=== PATIENT | female | born 1960 | race Caucasian/White ===

== ENCOUNTER → 2016-11-23 | Outpatient (CLI) | payer BC | LOC: MW.CHFP 14:34 | PROVIDERS: ATTEND Nurse Practitioner Family | DX: R10.31 Right lower quadrant pain (principal) | CPT/HCPCS: 36415; 85025 ==

== ENCOUNTER → 2016-11-27 | Outpatient (CLI) | payer BC ==
--- NOTE | 2016-11-28 08:49 | CT ---
EXAMINATION: CT IAC HISTORY: Right tear pain COMPARISON: None TECHNIQUE: Axial CT images obtained through the IACs without contrast. Coronal and sagittal reconstr uctions obtained. FINDINGS: The middle ears appear normal bilaterally. The ossicles are intact. The cochlea and semici rcular canals are normal without evidence of the assistance. There is minimal opacification of the m astoid air cells bilaterally. No bony erosion or air-fluid levels. The IACs appear symmetric. Bone m ineralization is normal. The visualized paranasal sinuses are clear. Temporomandibular joints appear normal. IMPRESSION: Normal IACs bilaterally.
== END ==
LOC: MW.DI 11:01
PROVIDERS: ATTEND Nurse Practitioner Family
DX: H92.01 Otalgia, right ear (principal)
CPT/HCPCS: 70480; 70480-26

== ENCOUNTER 2017-09-20 09:11 | Day surgery (SDC) | payer BC ==
[~2017-09-20 09:11] MED LIST: Lactated Ringers 1,000 ML IV SCH; Sodium Chloride 0.9% 10 ML Syringe FLUSH PRN; Sodium Chloride 0.9% 2.5 ML Syringe FLUSH PRN
--- NOTE | 2017-09-20 09:55 | PCM.PREANE ---
Preanesthetic Assessment - Anesthesia/Transfusion/Family Hx Anesthesia History: Prior Anesthesia Without Reaction Family History of Anesthesia Reaction: No Transfusion History: No Prior Transfusion(s) Intubation History: Unknown - Review of Systems General: No Symptoms Pulmonary: No Symptoms Cardiovascular: No Symptoms Gastrointestinal: Other (gerd) Neurological: No Symptoms Other: Reports: None - Physical Assessment O2 Sat by Pulse Oximetry: 96 Respiratory Rate: 16 Vital Signs: Last Vital Signs Temp 36.3 C 09/20/17 09:18 Pulse 86 09/20/17 09:18 Resp 16 09/20/17 09:18 BP 116/76 09/20/17 09:18 Pulse Ox 96 09/20/17 09:18 Height: 1.63 m Weight: 68.946 kg Mental Status: Alert & Oriented x3 Airway Class: Mallampati = 2 Dentition: Reports: Normal Dentition Thyro-Mental Finger Breadths: 3 Mouth Opening Finger Breadths: 3 ROM/Head Extension: Full Lungs: Clear to Auscultation, Normal Respiratory Effort Cardiovascular: Regular Rate, Regular Rhythm - Allergies Allergies/Adverse Reactions: Allergies Allergy/AdvReac Type Severity Reaction Status Date / Time No Known Allergies Allergy Verified 03/28/15 17:45 - Blood Blood Available: No - Anesthesia Plan Pre-Op Medication Ordered: None - Acknowledgements Anesthesia Type Planned: MAC Pt an Appropriate Candidate for the Planned Anesthesia: Yes Alternatives and Risks of Anesthesia Discussed w Pt/Guardian: Yes Pt/Guardian Understands and Agrees with Anesthesia Plan: Yes PreAnesthesia Questionnaire - Past Health History Medical/Surgical History: Denies Medical/Surgical History Gastrointestinal History: Reports: Diverticulosis, Gastritis, GERD, Hiatal Hernia Musculoskeletal History: Reports: Arthritis Psychiatric History: Reports: Anxiety, Depression - Past Surgical History Head Surgeries/Procedures: Reports: None Female Surgical History: Reports: Hysterectomy, Salpingo-Oophorectomy - SUBSTANCE USE Smoking Status *Q: Former Smoker Second Hand Smoke Exposure: No Days Per Week of Alcohol Use: 0 Recreational Drug Use History: No - HOME MEDS Home Medications: Home Meds Estradiol [Vivelle-Dot] 1 patch TRDERM ASDIRECTED 01/09/15 [History] busPIRone [Buspar] 15 tab PO BID 01/09/15 [History] medroxyPROGESTERone Acetate [Medroxyprogesterone Acetate] 2.5 mg PO DAILY [History] Pantoprazole Sodium 40 mg PO DAILY 09/19/17 [History] - CURRENT (IN HOUSE) MEDS Current Meds: Current Medications Lactated Ringer's (Ringers, Lactated) 1,000 mls @ 125 mls/hr IV ASDIRECTED GO Last Admin: 09/20/17 09:22 Dose: 125 mls/hr Sodium Chloride (Saline Flush) 10 ml FLUSH ASDIRECTED PRN PRN Reason: Keep Vein Open Sodium Chloride (Saline Flush) 2.5 ml FLUSH ASDIRECTED PRN PRN Reason: Keep Vein Open
[2017-09-20] MEDS ORDERED: Midazolam 1 MG/ML 2 ML SDV ONE (13:02)
[2017-09-20] MEDS ORDERED: fentaNYL 100 MCG/2 ML SDV ONE (13:02)
[2017-09-20] MEDS ORDERED: Propofol 200 MG/20 ML SDV ONE (13:02)
[2017-09-20] MEDS ORDERED: Lidocaine 2% 5 ML SDV ONE (13:02)
--- NOTE | 2017-09-20 13:53 | PCM.OPNOTE ---
- General Post-Op/Procedure Note Date of Surgery/Procedure: 09/20/17 Operative Procedure(s): Diagnostic EGD and colonoscopy Findings: Hiatal hernia, diverticulosis Pre Op Diagnosis: Dysphagia, screening colonoscopy Post-Op Diagnosis: Hiatal hernia, diverticulosis Anesthesia Technique: AIMEE Primary Surgeon: Jaimie Soares Condition: Good
--- NOTE | 2017-09-20 14:08 | PCM48HPAN ---
Post Anesthesia Note - EVALUATION WITHIN 48HRS OF ANESTHETIC Vital Signs in Normal Range: Yes Patient Participated in Evaluation: Yes Respiratory Function Stable: Yes Airway Patent: Yes Cardiovascular Function Stable: Yes Hydration Status Stable: Yes Pain Control Satisfactory: Yes Nausea and Vomiting Control Satisfactory: Yes Mental Status Recovered: Yes
--- NOTE | 2017-09-20 14:08 | PCM.POSTAN ---
POST ANESTHESIA ASSESSMENT - MENTAL STATUS Mental Status: Alert, Oriented - RESPIRATORY Respiratory Status: Respiratory Rate WNL, Airway Patent, O2 Saturation Stable - CARDIOVASCULAR CV Status: Pulse Rate WNL, Blood Pressure Stable - GASTROINTESTINAL GI Status: No Symptoms - POST OP HYDRATION Hydration Status: Adequate & Stable
[2017-09-20 14:21] VITALS: BP 110/74
--- NOTE | 2017-09-21 09:48 | OR ---
SURGEON: ROQUE SILVA MD DATE OF PROCEDURE: 09/20/2017 PREOPERATIVE DIAGNOSIS: Right upper extremity pain and swelling. POSTOPERATIVE DIAGNOSIS: Right upper extremity pain and swelling. PROCEDURE PERFORMED: 1. Removal of right subclavian Port-A-Cath. 2. Placement of left internal jugular Port-A-Cath. ANESTHESIA: General LMA. FLUIDS: See anesthesia record. ESTIMATED BLOOD LOSS: 30 mL. FINDINGS: Intact right subclavian Port-A-Cath. Placement of left internal jugular Port-A- Cath. COMPLICATIONS: None. INDICATIONS: The patient is a 57-year-old female with poor vascular access and a history of lymphoma, who 4 to 5 years ago underwent placement of a right subclavian Port-A- Cath. This has been functioning well for her. Starting last month, she developed pain around the Port-A-Cath site, which then extended up into her neck. The patient started developing right upper extremity swelling, pain, and numbness. All imaging and laboratory testing have been normal. The patient continues to have tenderness around the Port-A-Cath site. The decision was made to remove the right subclavian Port-A-Cath to see if this gives the patient some relief. At this point in time, there are no indications that this port is infected. Because of this, we will place a new Port-A-Cath at the same time. We discussed the procedure, expected perioperative course, and risks including bleeding, infection, or damage to surrounding structures, including hemothorax or pneumothorax. The patient verbalized understanding and wishes to proceed. PROCEDURE IN DETAIL: The patient was brought into the OR and placed on the OR table in supine position. A time-out was completed verifying the patient's name, age, date of , allergies, and procedure to be performed. An ultrasound was brought in and I verified the vascular anatomy on the left side in the patient's neck. General LMA anesthesia was induced. The neck and chest were prepped and draped in usual standard fashion. 0.5% Marcaine plain was used to anesthetize her previous incision on the right anterior chest. A #15 blade was used to open up the previous incision. Cautery was used to dissect down to the level of the old Port-A-Cath. The port was well scarred in and did not appear to have any collections of purulence around it. There was no evidence of any edema or swelling around the port itself. The scar capsule was opened and I was able to take down any adhesions of the port to surrounding structures. Gentle pressure was used and the Port-A-Cath tubing was then removed from the subclavian vein. Hemostasis was then achieved using cautery. I closed the site with interrupted 3-0 Vicryl in the subcutaneous fat and a running 4-0 Monocryl stitch in a subcuticular space. Steri-Strips and sterile dressings were applied. I then turned my attention to the left neck. Using a sterile ultrasound, I then re- verified the vascular anatomy of the neck. I anesthetized the area overlying the left internal jugular vein with 0.5% Marcaine plain. Using ultrasound guidance, I guided a locating needle into the left internal jugular vein. A brisk return of venous blood was aspirated. A guidewire was then placed down the internal jugular vein and the billing and insurance coordinator needle removed. X-ray was brought in and I verified that the guidewire was in the superior vena cava. I then turned my attention to the left anterior chest. I made a subcutaneous pocket, approximately 2 fingerbreadths below the lateral left clavicle. Once the subcutaneous pocket was formed, I then used a tunneling device to tunnel my catheter tubing from the anterior chest wall pocket up to the guidewire on the left neck. Dilator and sheath were then advanced under fluoroscopic guidance. Over the guidewire to dilate up the vein. The internal dilator was removed and I attempted to place the catheter tubing down the vascular sheath. However, I was unable to do so. The catheter tubing was removed and I placed a dilator back in. There seemed to be resistance at the base of the vascular sheath. I placed the guidewire back into the vessel and removed the vascular sheath and dilator. A new vascular sheath and dilator were then brought in and guided under fluoroscopic guidance over the guidewire again. The guidewire and dilator were removed and I was then able to place a catheter tubing down the vascular sheath into the superior vena cava. The vascular sheath was split and removed. Fluoroscopy was used to then guide the catheter tubing into the superior vena cava in an acceptable position. I was able to get a good return of venous blood from the end of the catheter tubing. The catheter tubing was then trimmed to fit and placed onto the Port-A-Cath device. This was then placed in my subcutaneous anterior chest wall pocket and secured to the chest wall with interrupted 2-0 Prolene sutures. The port was then aspirated and locked with 4 mL of heparinized saline. The anterior chest wall pocket was then closed with interrupted 3-0 Vicryl in the subcutaneous fat and a running 4-0 Monocryl stitch in the subcuticular space. The neck insertion site was then closed with interrupted 4-0 Monocryl suture. Steri-Strips and sterile dressings were applied. The patient tolerated the procedure well and was taken to PACU in stable condition. A postoperative chest x-ray appeared normal. JOAQUIN HARRELL /[id number]
--- NOTE | 2017-09-21 10:24 | OR ---
SURGEON: ROQUE SILVA MD DATE OF PROCEDURE: 09/20/2017 PREOPERATIVE DIAGNOSES: Diverticulitis, dysphagia. POSTOPERATIVE DIAGNOSES: 1. Diverticulosis. 2. Hiatal hernia. 3. Gastroesophageal reflux disease. PROCEDURE PERFORMED: Diagnostic esophagogastroduodenoscopy and colonoscopy. ANESTHESIA: MAC. INSTRUMENT USED: Olympus endoscope, Olympus colonoscope. EXTENT OF EXAM: 1. To the second portion of duodenum. 2. To the cecum. PREPARATION: Good. LIMITATIONS: None. INDICATION FOR EXAMINATION: The patient is a 57-year-old female, who was recently diagnosed with diverticulitis in July of this past year. She was treated successfully with antibiotics and her bowel habits have returned to normal. The patient has never had a colonoscopy. The patient was also complaining of some dysphagia. Preoperative esophagram showed a small hiatal hernia as well as gastric reflux. The decision was made to perform a diagnostic EGD and colonoscopy. The patient and I discussed the procedure as well as expected perioperative course. We discussed the risks, including bleeding, infection, or damage to surrounding structures, including perforation. The patient verbalized understanding and wishes to proceed. PROCEDURE IN DETAIL: The patient was brought into the endoscopy suite and placed in a beach-chair position. A time-out was completed verifying the patient's name, age, date of , allergies, and procedure to be performed. A bite-block was placed in the patient's mouth and monitored anesthesia care induced. Continuous oxygen was provided via nasal cannula throughout the procedure. After adequate sedation was achieved, a well-lubricated endoscope was placed in the patient's mouth and advanced under direct visualization to the level of second portion of the duodenum. This appeared normal and a photograph was taken. The scope was then fully withdrawn while examining the color, texture, anatomy, and integrity of the mucosa of the upper GI tract. The duodenum appeared normal. The scope was brought into the stomach and a photograph was taken of the pylorus as well as the GE junction. The patient was noted to have a very small hiatal hernia. The gastric mucosa did not appear grossly inflamed and there was no evidence of peptic ulcer disease. Biopsies were taken of the gastric antrum, body, and fundus and sent for H. pylori and histologic testing. The scope was then brought into the distal esophagus and a photograph was taken of the GE junction. Hiatal hernia appeared small and there was no evidence of esophagitis. The remainder of the esophageal mucosa appeared normal. The scope was removed from the patient and this portion of procedure terminated. The patient was placed in the left lateral decubitus position. A digital rectal exam was performed. This exam was within normal limits. A well-lubricated colonoscope was inserted in the rectum and advanced under direct visualization to the level of the cecum. The cecum was identified by both visual and anatomic landmarks. A photograph was taken of the cecal cap as well as with the scope retroflexed within the cecum. The scope was then fully withdrawn while examining the color, texture, anatomy, and integrity of the mucosa from the cecum to the anal canal. The patient was noted to have diverticulosis. The scope was brought into the rectum and retroflexed to allow visualization of the anal canal opening. This appeared normal and a photograph was taken. The scope was then straightened out and removed from the patient. The cecum to anus time was 13 minutes. The patient tolerated the procedure well and was taken to PACU in stable condition. ENDOSCOPIC DIAGNOSES: 1. Diverticulosis. 2. Hiatal hernia. 3. Gastroesophageal reflux disease. RECOMMENDATION: Follow up in clinic in 2 weeks. JOAQUIN HARRELL /[id number]
== END 2017-09-20 14:24 | disposition home or self-care (01) ==
LOC: MW.SDS 09:11
PROVIDERS: ATTEND Surgery
DX: K21.9 Gastro-esophageal reflux disease without esophagitis (principal); K29.50 Unspecified chronic gastritis without bleeding; K57.30 Diverticulosis of large intestine without perforation or abscess without bleeding; K44.9 Diaphragmatic hernia without obstruction or gangrene; M79.601 Pain in right arm; F41.8 Other specified anxiety disorders; Z90.710 Acquired absence of both cervix and uterus; Z79.899 Other long term (current) drug therapy; Z90.722 Acquired absence of ovaries, bilateral; Z87.891 Personal history of nicotine dependence
CPT/HCPCS: 36561; 36590; 43239; 45378; J2250; J3010; J7120; 88305; 88312; J2704

== ENCOUNTER 2017-10-25 13:55 | Day surgery (SDC) | payer BC ==
[2017-10-25] MEDS ORDERED: Bupivacaine 25%/EPINEPHrine/PF 30 ML ONE (14:28)
[2017-10-25] MEDS ORDERED: Octyl 2-Cyanoacrylate 1 Tube ONE ×2 (14:29→16:08)
[2017-10-25] MEDS ORDERED: Propofol 200 MG/20 ML SDV ONE (14:32)
[2017-10-25] MEDS ORDERED: Succinylcholine/Normal Saline 200 MG/10 ML Syringe ONE (14:32)
[2017-10-25] MEDS ORDERED: Ondansetron 4 MG/2 ML SDV ONE (14:32)
[2017-10-25] MEDS ORDERED: Dexamethasone 4 MG/ML 5 ML MDV ONE (14:32)
[2017-10-25] MEDS ORDERED: diphenhydrAMINE 50 MG/ML SDV ONE (14:32)
[2017-10-25] MEDS ORDERED: Rocuronium 10 MG/ML 10 ML Syringe ONE (14:32)
[2017-10-25] MEDS ORDERED: fentaNYL 250 MCG/5 ML SDV ONE (14:32)
[2017-10-25] MEDS ORDERED: Midazolam 1 MG/ML 2 ML SDV ONE (14:32)
--- NOTE | 2017-10-25 15:07 | PCM.PREANE ---
Preanesthetic Assessment - Procedure Proposed Procedure: laparoscopic appendectomy - Anesthesia/Transfusion/Family Hx Anesthesia History: Prior Anesthesia Without Reaction Family History of Anesthesia Reaction: No Transfusion History: No Prior Transfusion(s) Intubation History: Unknown - Review of Systems Other: Reports: None - Physical Assessment O2 Sat by Pulse Oximetry: 97 Respiratory Rate: 20 Vital Signs: Last Vital Signs Temp 36.3 C 10/25/17 14:20 Pulse 95 10/25/17 14:20 Resp 20 10/25/17 14:20 BP 128/82 10/25/17 14:20 Pulse Ox 97 10/25/17 14:20 Height: 5 ft 4 in Weight: 69.4 kg ASA Class: 2E Mental Status: Alert & Oriented x3 Airway Class: Mallampati = 2 Dentition: Reports: Normal Dentition Thyro-Mental Finger Breadths: 3 Mouth Opening Finger Breadths: 3 ROM/Head Extension: Full - Allergies Allergies/Adverse Reactions: Allergies Allergy/AdvReac Type Severity Reaction Status Date / Time No Known Allergies Allergy Verified 10/25/17 14:48 - Acknowledgements Anesthesia Type Planned: General Anesthesia Pt an Appropriate Candidate for the Planned Anesthesia: Yes Alternatives and Risks of Anesthesia Discussed w Pt/Guardian: Yes Pt/Guardian Understands and Agrees with Anesthesia Plan: Yes PreAnesthesia Questionnaire - Past Health History Medical/Surgical History: Denies Medical/Surgical History Gastrointestinal History: Reports: Diverticulosis, Gastritis, GERD, Hiatal Hernia Musculoskeletal History: Reports: Arthritis Psychiatric History: Reports: Anxiety, Depression - Past Surgical History Head Surgeries/Procedures: Reports: None GI Surgical History: Reports: Colonoscopy Female Surgical History: Reports: Hysterectomy, Salpingo-Oophorectomy - SUBSTANCE USE Smoking Status *Q: Unknown Ever Smoked Second Hand Smoke Exposure: No Days Per Week of Alcohol Use: 0 Recreational Drug Use History: No - HOME MEDS Home Medications: Home Meds Estradiol [Vivelle-Dot] 1 patch TRDERM ASDIRECTED 01/09/15 [History] busPIRone [Buspar] 15 tab PO BID 01/09/15 [History] medroxyPROGESTERone Acetate [Medroxyprogesterone Acetate] 2.5 mg PO DAILY [History] Pantoprazole Sodium 40 mg PO DAILY 09/19/17 [History] - CURRENT (IN HOUSE) MEDS Current Meds: Current Medications Discontinued Medications Dexamethasone (Dexamethasone) Confirm Administered Dose 20 mg .ROUTE .STK-MED ONE Stop: 10/25/17 14:33 Diphenhydramine HCl (Benadryl) Confirm Administered Dose 50 mg .ROUTE .STK-MED ONE Stop: 10/25/17 14:33 Fentanyl (Sublimaze) Confirm Administered Dose 250 mcg .ROUTE .STK-MED ONE Stop: 10/25/17 14:33 Bupivacaine HCl/Epinephrine Bitart (Sensorc Mpf 0.25%-Epi [id number]) Confirm Administered Dose 30 mls @ as directed .ROUTE .STK-MED ONE Stop: 10/25/17 14:29 Midazolam HCl (Versed 1 Mg/Ml) Confirm Administered Dose 2 mg .ROUTE .STK-MED ONE Stop: 10/25/17 14:33 Octyl Cyanoacrylate (Dermabond Advance) Confirm Administered Dose 1 applic .ROUTE .STK-MED ONE Stop: 10/25/17 14:30 Ondansetron HCl (Zofran) Confirm Administered Dose 4 mg .ROUTE .STK-MED ONE Stop: 10/25/17 14:33 Propofol (Diprivan 20 Ml) Confirm Administered Dose 200 mg .ROUTE .STK-MED ONE Stop: 10/25/17 14:33 Rocuronium Gurley (Zemuron) Confirm Administered Dose 100 mg .ROUTE .STK-MED ONE Stop: 10/25/17 14:33 Succinylcholine Chloride (Succinylcholine In Ns Pf) Confirm Administered Dose 200 mg .ROUTE .STK-MED ONE Stop: 10/25/17 14:33
[2017-10-25] MEDS ORDERED: Ketorolac 30 MG/ML SDV ONE (15:27)
[2017-10-25] MEDS ORDERED: Glycopyrrolate 0.2 MG/ML SDV ONE (15:27)
[2017-10-25] MEDS ORDERED: Neostigmine Methylsulfate 1 MG/ML 5 ML Syringe ONE (15:27)
[2017-10-25] MEDS ORDERED: fentaNYL 100 MCG/2 ML SDV ONE (15:50)
--- NOTE | 2017-10-25 16:28 | PCM.OPNOTE ---
- General Post-Op/Procedure Note Date of Surgery/Procedure: 10/25/17 Findings: appendix is hyperemic, hardened, cw early appendicitis, no gross perforation [id number] Pre Op Diagnosis: acute appendicitis Post-Op Diagnosis: Same Anesthesia Technique: General ET Tube Primary Surgeon: Simeon Rainey Pathology: send Complications: None Condition: Good Free Text/Narrative:: Intake & Output 10/25/17 10/25/17 10/25/17 06:59 14:59 22:59 Output Total 150 Balance -150
[2017-10-25] MEDS ORDERED: Ondansetron 4 MG/2 ML SDV IVPUSH PRN (16:31)
[2017-10-25] MEDS ORDERED: HYDROmorphone 2 MG/ML SDV ONE (16:45)
[2017-10-25] MEDS: fentaNYL 100 MCG/2 ML SDV IVPUSH PRN ×2 (17:31→17:44)
--- NOTE | 2017-10-25 18:08 | PCM.POSTAN ---
POST ANESTHESIA ASSESSMENT - MENTAL STATUS Mental Status: Alert, Oriented - VITAL SIGNS Pulse Rate: 84 SaO2: 94 Resp Rate: 10 Blood Pressure: 102/68 - RESPIRATORY Respiratory Status: Respiratory Rate WNL, Airway Patent, O2 Saturation Stable, Supplemental Oxygen (via nasal canula, continous sats ordered until pt ambulating) - CARDIOVASCULAR CV Status: Pulse Rate WNL, Blood Pressure Stable - GASTROINTESTINAL GI Status: No Symptoms - PAIN Pain Score: 9 Free Text/Narrative:: patient resting/sleeping. has received Dilaudid 2 mg, Fentanyl 100 mcg, and Valium 2.5 mg. - POST OP HYDRATION Hydration Status: Adequate & Stable
[2017-10-25] MEDS: Lactated Ringers 1,000 ML IV SCH (18:29)
--- NOTE | 2017-10-25 21:28 | OR ---
SURGEON: Simeon Rainey MD DATE OF PROCEDURE: 10/25/2017 PREOPERATIVE DIAGNOSIS: Acute appendicitis. POSTOPERATIVE DIAGNOSIS: Acute appendicitis. PROCEDURE PERFORMED: Laparoscopic appendectomy. COMPLICATIONS: None. FINDING: The appendix is interacting with surrounding area and pretty hardened and hyperemic consistent with early appendicitis. No signs or symptoms of gross perforation observed. PROCEDURE PERFORMED: The patient was taken to the operating room and placed in the supine position. Following induction of general endotracheal anesthesia, the patient's abdomen was prepped and draped in the sterile fashion. A time-out has been called. The patient was identified. The procedure was identified. The antibiotics were identified. The procedure then proceeded. The abdomen was prepped and draped in a standard fashion. After assessment of appropriate landmarks, a 12 millimeter trocar was inserted supraumbilically using Optiview and pneumoperitoneum was then achieved. This was followed with placement of 5 millimeter port in the right upper quadrant and another 5 millimeter port infraumbilically. The camera was inserted supraumbilical site and two laparoscopic Florinda retractors were then inserted through the other two sites. Following the cecum, the appendix was located. The appendix was then lifted up, and using a GI stapler the appendix was amputated at the base. And using the GI stapler, the mesoappendix was then amputated. The appendix was retrieved by an endoscopic bag and sent for pathologist. After the appendix were removed, Surgicel two pieces were inserted to assist in the hemostasis and intraoperative finding of the appendix as dictated above. This was then followed by re-insertion of the camera to examine the staple line, and hemostasis. The trocars were then removed. The umbilical site was closed with 2-0 Vicryl deep stitch and 4 -0 Vicryl and Dermabond; the other 2 5 mm port sites were closed with 4-0 Vicryl and Dermabond. The patient was then awakened, extubated, and transferred to the recovery room in hemodynamically stable condition. Prior to closing, sponge count and instrument count was correct. Dr. Rainey was present throughout the whole procedure. As always, thank you for the kind referral. BARBARA / SHARRI /[id number]
[2017-10-26] MEDS: Acetaminophen/oxyCODONE 325-5 MG Tab PO PRN ×3 (00:02→14:46)
[2017-10-26] MEDS: Lactated Ringers 1,000 ML IV SCH ×2 (02:28→10:39)
[2017-10-26] MEDS ORDERED: Morphine 2 MG/ML Syringe IVPUSH ONE (03:46)
--- NOTE | 2017-10-26 08:04 | PCM48HPAN ---
Post Anesthesia Note - EVALUATION WITHIN 48HRS OF ANESTHETIC Vital Signs in Normal Range: Yes Patient Participated in Evaluation: Yes Respiratory Function Stable: Yes Airway Patent: Yes Cardiovascular Function Stable: Yes Hydration Status Stable: Yes Pain Control Satisfactory: Yes Nausea and Vomiting Control Satisfactory: Yes Mental Status Recovered: Yes Pulse Rate: 84 Resp Rate: 16 Blood Pressure: 102/68
--- NOTE | 2017-10-26 13:04 | CR ---
EXAMINATION: Two-view chest (PA and Lateral views). HISTORY: Desaturation. Comparison: 01/09/2015. FINDINGS: The trachea is midline. The cardiomediastinal silhouette is within normal limits. No pulmonary infilt rates, effusions or pneumothorax. There is a new tubular opacity identified within the right hilar re gion. Osseous structures appear unremarkable. IMPRESSION: 1. New tubular shaped opacity within the right hilar region measuring approximately 3.6 x 0.8 cm. Con product applications engineer short-term follow-up, if this persists consider a CT.
[2017-10-26 13:38] VITALS: BP 114/55
--- NOTE | 2017-10-26 13:50 | PCM.PN ---
- General Info Date of Service: 10/26/17 Functional Status: Reports: Pain Controlled - Review of Systems General: Reports: No Symptoms Gastrointestinal: Reports: No Symptoms (hernando po; amb by self to bathroom and chakraborty ) - Patient Data Vitals - Most Recent: Last Vital Signs Temp 98.4 F 10/26/17 13:00 Pulse 64 10/26/17 13:00 Resp 16 10/26/17 13:00 BP 114/55 L 10/26/17 13:00 Pulse Ox 93 L 10/26/17 13:00 Weight - Most Recent: 153 lb I&O - Last 24 Hours: Intake & Output 10/25/17 10/26/17 10/26/17 22:59 06:59 14:59 Intake Total 2900 2614 Output Total 4000 Balance 2900 -1386 Med Orders - Current: Current Medications Fentanyl (Sublimaze) 50 mcg IVPUSH SEECOMMENT PRN PRN Reason: Pain (moderate 4-6) Last Admin: 10/25/17 17:44 Dose: 50 mcg Lactated Ringer's (Ringers, Lactated) 1,000 mls @ 125 mls/hr IV ASDIRECTED [facility] Last Admin: 10/26/17 10:39 Dose: 125 mls/hr Ondansetron HCl (Zofran) 4 mg IVPUSH Q8H PRN PRN Reason: Nausea/Vomiting Oxycodone/Acetaminophen (Percocet 325-5 Mg) 1 tab PO Q6H PRN PRN Reason: Pain Last Admin: 10/26/17 07:20 Dose: 1 tab Discontinued Medications Dexamethasone (Dexamethasone) Confirm Administered Dose 20 mg .ROUTE .STK-MED ONE Stop: 10/25/17 14:33 Diazepam (Valium) 2.5 mg IV ONETIME ONE Stop: 10/25/17 17:54 Last Admin: 10/25/17 17:56 Dose: 2.5 mg Diazepam (Valium) Confirm Administered Dose 50 mg .ROUTE .STK-MED ONE Stop: 10/25/17 17:58 Last Admin: 10/25/17 18:28 Dose: Not Given Diphenhydramine HCl (Benadryl) Confirm Administered Dose 50 mg .ROUTE .STK-MED ONE Stop: 10/25/17 14:33 Fentanyl (Sublimaze) Confirm Administered Dose 250 mcg .ROUTE .STK-MED ONE Stop: 10/25/17 14:33 Fentanyl (Sublimaze) Confirm Administered Dose 100 mcg .ROUTE .STK-MED ONE Stop: 10/25/17 15:51 Glycopyrrolate (Robinul) Confirm Administered Dose 0.6 mg .ROUTE .STK-MED ONE Stop: 10/25/17 15:28 Hydromorphone HCl (Dilaudid) Confirm Administered Dose 2 mg .ROUTE .STK-MED ONE Stop: 10/25/17 16:46 Bupivacaine HCl/Epinephrine Bitart (Sensorc Mpf 0.25%-Epi [id number]) Confirm Administered Dose 30 mls @ as directed .ROUTE .STK-MED ONE Stop: 10/25/17 14:29 Acetaminophen (Ofirmev) Confirm Administered Dose 100 mls @ as directed IV .STK- MED ONE Stop: 10/25/17 17:16 Ketorolac Tromethamine (Toradol) Confirm Administered Dose 30 mg .ROUTE .STK- MED ONE Stop: 10/25/17 15:28 Midazolam HCl (Versed 1 Mg/Ml) Confirm Administered Dose 2 mg .ROUTE .STK-MED ONE Stop: 10/25/17 14:33 Morphine Sulfate (Morphine) 2 mg IVPUSH ONETIME ONE Stop: 10/26/17 03:47 Last Admin: 10/26/17 04:27 Dose: 2 mg Neostigmine Methylsulfate (Neostigmine) Confirm Administered Dose 5 mg .ROUTE .STK-MED ONE Stop: 10/25/17 15:28 Octyl Cyanoacrylate (Dermabond Advance) Confirm Administered Dose 1 applic .ROUTE .STK-MED ONE Stop: 10/25/17 14:30 Octyl Cyanoacrylate (Dermabond Advance) Confirm Administered Dose 1 applic .ROUTE .STK-MED ONE Stop: 10/25/17 16:09 Ondansetron HCl (Zofran) Confirm Administered Dose 4 mg .ROUTE .STK-MED ONE Stop: 10/25/17 14:33 Propofol (Diprivan 20 Ml) Confirm Administered Dose 200 mg .ROUTE .STK-MED ONE Stop: 10/25/17 14:33 Rocuronium [place]culaneum (Zemuron) Confirm Administered Dose 100 mg .ROUTE .STK-MED ONE Stop: 10/25/17 14:33 Succinylcholine Chloride (Succinylcholine In Ns Pf) Confirm Administered Dose 200 mg .ROUTE .STK-MED ONE Stop: 10/25/17 14:33 - Exam Lungs: Normal Respiratory Effort GI/Abdominal Exam: Soft, No Distention (wound cdi) - Problem List Review Problem List Initiated/Reviewed/Updated: Yes - My Orders Last 24 Hours: My Active Orders 10/25/17 16:30 Ready for Discharge [RC] PER UNIT ROUTINE 10/25/17 16:31 Admission Status [Patient Status] [ADT] Routine Ondansetron [Zofran] 4 mg IVPUSH Q8H PRN 10/25/17 16:32 Acetaminophen/oxyCODONE [Percocet 325-5 MG] 1 tab PO Q6H PRN 10/25/17 16:45 Lactated Ringers [Ringers, Lactated] 1,000 ml IV ASDIRECTED 10/25/17 Dinner Full Liquid Diet [DIET] - Assessment Assessment:: doing well po; fu 1 - 2 wks; home on script - Plan Plan:: doing well po; fu 1 - 2 wks; home on script
[2017-10-26] MEDS ORDERED: busPIRone 5 MG Tab PO SCH (21:00)
[2017-10-27] MEDS ORDERED: Pantoprazole 40 MG Tab.CR PO SCH (07:30)
== END 2017-10-26 15:00 | disposition home or self-care (01) ==
LOC: MW.ED 13:55 → MW.MS 16:19 → MW.ED 10-26 15:00
PROVIDERS: ATTEND Surgery
DX: K35.80 Unspecified acute appendicitis (principal); F41.8 Other specified anxiety disorders; K21.9 Gastro-esophageal reflux disease without esophagitis; Z90.710 Acquired absence of both cervix and uterus; Z79.899 Other long term (current) drug therapy
CPT/HCPCS: 71045; 71045-26; 88304; 99284; A9270-GY; C1776; J1100; J1170; J1200; J1885; J2250; J2270; J2405; J2704; J3010; J7120

== ENCOUNTER 2017-11-15 02:55 | Observation (INO) | payer BC ==
[2017-11-15] MEDS ORDERED: Sodium Chloride 0.9% 2.5 ML Syringe FLUSH PRN (03:14)
[2017-11-15] MEDS ORDERED: Sodium Chloride 0.9% 1,000 ML IV ONE (03:14)
[2017-11-15] MEDS ORDERED: Sodium Chloride 0.9% 10 ML Syringe FLUSH PRN (03:14)
[2017-11-15] MEDS ORDERED: Ondansetron 4 MG/2 ML SDV IVPUSH ONE (03:14)
[2017-11-15] MEDS ORDERED: Morphine 2 MG/ML Syringe IVPUSH ONE (03:14)
--- NOTE | 2017-11-15 03:18 | EDM.PDOC ---
ED HPI GENERAL MEDICAL PROBLEM - General Chief Complaint: Abdominal Pain Stated Complaint: STOMACH PAIN Time Seen by Provider: 11/15/17 03:04 - History of Present Illness INITIAL COMMENTS - FREE TEXT/NARRATIVE: HISTORY AND PHYSICAL: History of present illness: The patient is a 57-year-old female with a history of an appendectomy in October, diverticulitis last fall, and a total abdominal hysterectomy who presents with complaints of mid abdominal pain that started approximately 24 hours ago. She said it came on gradually and there was no associated fever or urinary complaints no flank pain and she points to the left of her umbilicus as the site of the pain. It's a dull aching deep pain and she does not feel bloated. Patient has had 2 episodes of vomiting this evening the pain. Has not taken anything for nausea or vomiting and last took some ibuprofen yesterday. She has no cough chest pain or shortness of breath and she had a normal bowel movement yesterday without watery stools black or bloody. Review of systems: As per history of present illness and below otherwise all systems reviewed and negative. Past medical history: As per history of present illness and as reviewed below otherwise noncontributory. Surgical history: As per history of present illness and as reviewed below otherwise noncontributory. Social history: No reported history of drug or alcohol abuse. Family history: As per history of present illness and as reviewed below otherwise noncontributory. Physical exam: Gen.: Well-developed well-nourished female who moves easily in the ED without distress and vital signs are noted by me HEENT: Atraumatic, normocephalic, negative for conjunctival pallor or scleral icterus, mucous membranes moist, throat clear, neck supple, nontender, trachea midline. Lungs: Clear to auscultation, breath sounds equal bilaterally, chest nontender. Heart: S1S2, regular rate and rhythm no overt murmurs Abdomen: Soft, nondistended, bowel sounds are hypoactive and there is diffuse midabdominal tenderness more to the left of the umbilicus with some voluntary guarding but no involuntary guarding and no rebound. Negative for masses or hepatosplenomegaly. Pelvis: Stable nontender. Genitourinary: Deferred. Rectal: Deferred. Extremities: Atraumatic, negative for cords or calf pain. Neurovascular unremarkable. Neuro: Awake, alert, oriented. Cranial nerves II through XII unremarkable. Cerebellum unremarkable. Motor and sensory unremarkable throughout. Exam nonfocal. 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 I briefly discussed this case with Dr. Quezada regarding the pancreatic duct dilatation on the CAT scan and she does not feel that that is clinically significant and that she can be admitted to the medicine service as a partial small bowel obstruction. I discussed all the testing results with the patient and she is agreeable for admission. I will discuss the case with Dr. Christianson our hospitalist and hang maintenance IV fluids. Impression: Abdominal pain with vomiting, partial small bowel obstruction Definitive disposition and diagnosis as appropriate pending reevaluation and review of above. Abdomen Pain Score (Numeric/FACES): 8 - Related Data Allergies Allergy/AdvReac Type Severity Reaction Status Date / Time No Known Allergies Allergy Verified 11/15/17 03:05 Home Meds: Home Meds busPIRone [Buspar] 15 tab PO BID 01/09/15 [History] Pantoprazole Sodium 40 mg PO DAILY 09/19/17 [History] Past Medical History - Past Health History Medical/Surgical History: Denies Medical/Surgical History HEENT History: Reports: None Cardiovascular History: Reports: None Respiratory History: Reports: None Gastrointestinal History: Reports: Diverticulosis, Gastritis, GERD, Hiatal Hernia Genitourinary History: Reports: None 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: Musculoskeletal History: Reports: Arthritis Neurological History: Reports: None Psychiatric History: Reports: Anxiety, Depression Endocrine/Metabolic History: Reports: None Hematologic History: Reports: None Immunologic History: Reports: None Oncologic (Cancer) History: Reports: None Dermatologic History: Reports: None - Infectious Disease History Infectious Disease History: Reports: None - Past Surgical History Head Surgeries/Procedures: Reports: None GI Surgical History: Reports: Appendectomy, Colonoscopy Female Surgical History: Reports: Hysterectomy, Salpingo-Oophorectomy Social & Family History - Family History Family Medical History: Noncontributory - Tobacco Use Smoking Status *Q: Never Smoker Used Tobacco, but Quit: Yes Month Tobacco Last Used: quit smoking 12 yrs ago Second Hand Smoke Exposure: No - Caffeine Use Caffeine Use: Reports: Soda - Alcohol Use Days Per Week of Alcohol Use: 0 - Recreational Drug Use Recreational Drug Use: No ED ROS GENERAL - Review of Systems Review Of Systems: ROS reveals no pertinent complaints other than HPI. ED EXAM, GENERAL - Physical Exam Exam: See Below (See dictation) Course - Vital Signs Last Recorded V/S: Last Vital Signs Temp 37.2 C 11/15/17 03:06 Pulse 86 11/15/17 03:06 Resp 18 11/15/17 03:06 BP 132/79 11/15/17 03:06 Pulse Ox 98 11/15/17 03:06 - Orders/Labs/Meds Orders: Active Orders 24 hr Category Date Time Status Patient Status [ADT] Stat ADT 11/15/17 05:21 Ordered Abdomen Pelvis w Cont [CT] Stat Exams 11/15/17 03:14 Taken Sodium Chloride 0.9% [Normal Saline] 1,000 ml Med 11/15/17 05:15 Active IV ASDIRECTED Sodium Chloride 0.9% [Saline Flush] Med 11/15/17 03:14 Active 10 ml FLUSH ASDIRECTED PRN Sodium Chloride 0.9% [Saline Flush] Med 11/15/17 03:14 Active 2.5 ml FLUSH ASDIRECTED PRN Saline Lock Insert [OM.PC] Stat Oth 11/15/17 03:14 Ordered Medication Orders Sodium Chloride (Normal Saline) 1,000 mls @ 150 mls/hr IV ASDIRECTED GO Sodium Chloride (Saline Flush) 10 ml FLUSH ASDIRECTED PRN PRN Reason: Keep Vein Open Last Admin: 11/15/17 03:43 Dose: 10 ml Sodium Chloride (Saline Flush) 2.5 ml FLUSH ASDIRECTED PRN PRN Reason: Keep Vein Open Last Admin: 11/15/17 03:37 Dose: 2.5 ml Labs: Laboratory Tests 11/15/17 11/15/17 11/15/17 Range/Units 03:33 03:33 03:45 WBC 14.53 H (4.0-11.0) K/uL RBC 4.60 (4.30-5.90) M/uL Hgb 16.0 (12.0-16.0) g/dL Hct 44.6 (36.0-46.0) % MCV 97.0 (80.0-98.0) fL MCH 34.8 H (27.0-32.0) pg MCHC 35.9 (31.0-37.0) g/dL RDW Std Deviation 45.5 (28.0-62.0) fl RDW Coeff of Alexandra 13 (11.0-15.0) % Plt Count 256 (150-400) K/uL MPV 9.70 (7.40-12.00) fL Neut % (Auto) 77.9 (48.0-80.0) % Lymph % (Auto) 12.7 L (16.0-40.0) % [place] % (Auto) 8.9 (0.0-15.0) % Eos % (Auto) 0.4 (0.0-7.0) % Baso % (Auto) 0.1 (0.0-1.5) % Neut # (Auto) 11.3 H (1.4-5.7) K/uL Lymph # (Auto) 1.9 (0.6-2.4) K/uL [place] # (Auto) 1.3 H (0.0-0.8) K/uL Eos # (Auto) 0.1 (0.0-0.7) K/uL Baso # (Auto) 0.0 (0.0-0.1) K/uL Nucleated RBC % 0.0 /100WBC Nucleated RBCs # 0 K/uL Sodium 140 (136-145) mmol/L Potassium 4.2 (3.5-5.1) mmol/L Chloride 104 (98-107) mmol/L Carbon Dioxide 24.7 (21.0-32.0) mmol/L BUN 15 (7.0-18.0) mg/dL Creatinine 0.7 (0.6-1.0) mg/dL Est Cr Clr Drug Dosing 78.41 mL/min Estimated GFR (MDRD) > 60.0 ml/min Glucose 117 H (74-106) mg/dL Calcium 9.1 (8.5-10.1) mg/dL Total Bilirubin 0.8 (0.2-1.0) mg/dL AST 18 (15-37) IU/L ALT 24 (14-63) IU/L Alkaline Phosphatase 87 (46-116) U/L Total Protein 7.3 (6.4-8.2) g/dL Albumin 3.7 (3.4-5.0) g/dL Globulin 3.6 H (2.0-3.5) g/dL Albumin/Globulin Ratio 1.0 L (1.3-2.8) Amylase 47 (25-115) U/L Lipase 146 (73-393) U/L Urine Color YELLOW Urine Appearance CLEAR Urine pH 5.5 (5.0-8.0) Ur Specific [place] >= 1.030 (1.001-1.035) Urine Protein NEGATIVE (NEGATIVE) mg/dL Urine Glucose (UA) NEGATIVE (NEGATIVE) mg/dL Urine Ketones NEGATIVE (NEGATIVE) mg/dL Urine Occult Blood TRACE-INTACT (NEGATIVE) Urine Nitrite NEGATIVE (NEGATIVE) Urine Bilirubin NEGATIVE (NEGATIVE) Urine Urobilinogen 0.2 (<2.0) EU/dL Ur Leukocyte Esterase NEGATIVE (NEGATIVE) Urine RBC 0-2 (0-2/HPF) Urine WBC 0-3 (0-5/HPF) Ur Epithelial Cells FEW (NONE-FEW) Urine Bacteria FEW (NEGATIVE) Meds: Medications Generic Name Dose Route Start Last Admin Trade Name Davidq PRN Reason Stop Dose Admin Sodium Chloride 1,000 mls @ 150 mls/hr 11/15/17 05:15 Normal Saline IV ASDIRECTED GO Sodium Chloride 10 ml 11/15/17 03:14 11/15/17 03:43 Saline Flush FLUSH 10 ml ASDIRECTED PRN Administration Keep Vein Open Sodium Chloride 2.5 ml 11/15/17 03:14 11/15/17 03:37 Saline Flush FLUSH 2.5 ml ASDIRECTED PRN Administration Keep Vein Open Discontinued Medications Generic Name Dose Route Start Last Admin Trade Name Tiffanie PRN Reason Stop Dose Admin Sodium Chloride 1,000 mls @ 999 mls/hr 11/15/17 03:14 11/15/17 03:37 Normal Saline IV 11/15/17 04:14 999 mls/hr STAT ONE Administration Iopamidol 200 ml 11/15/17 04:40 11/15/17 04:44 Isovue Multipack-370 (76%) IVPUSH 11/15/17 04:41 85 ml ONETIME ONE Administration Morphine Sulfate 4 mg 11/15/17 03:14 11/15/17 03:42 Morphine IVPUSH 11/15/17 03:15 4 mg ONETIME ONE Administration Ondansetron HCl 4 mg 11/15/17 03:14 03/08/18 03:38 Zofran IVPUSH 11/15/17 03:15 4 mg ONETIME ONE Administration Departure - Departure Time of Disposition: 05:23 Disposition: Refer to Observation Condition: Good Clinical Impression: Partial small bowel obstruction - Discharge Information Referrals: Hanna Martinez IDENTIFICATION CLERK [Primary Care Provider] - Forms: ED Department Discharge - My Orders Last 24 Hours: My Active Orders 11/15/17 03:14 Abdomen Pelvis w Cont [CT] Stat Sodium Chloride 0.9% [Saline Flush] 10 ml FLUSH ASDIRECTED PRN Sodium Chloride 0.9% [Saline Flush] 2.5 ml FLUSH ASDIRECTED PRN Saline Lock Insert [OM.PC] Stat 11/15/17 05:15 Sodium Chloride 0.9% [Normal Saline] 1,000 ml IV ASDIRECTED 11/15/17 05:21 Patient Status [ADT] Stat - Assessment/Plan Last 24 Hours: My Active Orders 11/15/17 03:14 Abdomen Pelvis w Cont [CT] Stat Sodium Chloride 0.9% [Saline Flush] 10 ml FLUSH ASDIRECTED PRN Sodium Chloride 0.9% [Saline Flush] 2.5 ml FLUSH ASDIRECTED PRN Saline Lock Insert [OM.PC] Stat 11/15/17 05:15 Sodium Chloride 0.9% [Normal Saline] 1,000 ml IV ASDIRECTED 11/15/17 05:21 Patient Status [ADT] Stat
[2017-11-15 04:17] LABS: CHLORIDE,CL 104 mmol/L (98-107); SODIUM,NA 140 mmol/L (136-145)
[2017-11-15] MEDS ORDERED: Iopamidol 755 MG/ML 200 ML Multipack Bottle IVPUSH ONE (04:40)
[2017-11-15] MEDS ORDERED: Sodium Chloride 0.9% 1,000 ML IV SCH (05:15)
[2017-11-15] MEDS ORDERED: Ondansetron 4 MG/2 ML SDV IVPUSH PRN (06:11)
[2017-11-15] MEDS: Morphine 2 MG/ML Syringe IVPUSH PRN ×2 (08:05→14:25)
--- NOTE | 2017-11-15 09:58 | PCM.HP ---
H&P History of Present Illness - General Date of Service: 11/15/17 Admit Problem/Dx: Admission Diagnosis/Problem Admission Diagnosis/Problem Intestinal obstruction Source of Information: Patient - History of Present Illness Initial Comments - Free Text/Narative: This is a 57-year-old female that is being admitted secondary to abdominal pain. Patient states that she has been feeling unwell for the last couple of days, yesterday evening patient states that she started to become increasingly nauseous on able to intake any orals without throwing up and having abdominal pain. Patient became concerned because she recently 3 weeks prior had an appendectomy done. Patient denied any fevers or chills or any signs of infection. CT of the abdomen in the ER indicated a possible post operative ileus versus partial small bowel obstruction. Patient's imaging and status was spoken with surgery elevator constructor hydraulic who indicated there was nothing surgical to do at this point in time. Patient was subsequently admitted to the floor for bowel rest, IV fluids, and symptomatically pain control. Abdomen Pain Score (Numeric/FACES): 3 - Related Data Allergies/Adverse Reactions: Allergies Allergy/AdvReac Type Severity Reaction Status Date / Time No Known Allergies Allergy Verified 11/15/17 03:05 Home Medications: Home Meds busPIRone [Buspar] 15 tab PO BID 01/09/15 [History] Pantoprazole Sodium 40 mg PO DAILY 09/19/17 [History] Past Medical History - Past Health History Medical/Surgical History: Denies Medical/Surgical History HEENT History: Reports: None Cardiovascular History: Reports: None Respiratory History: Reports: None Gastrointestinal History: Reports: Diverticulosis, Gastritis, GERD, Hiatal Hernia Genitourinary History: Reports: Renal Calculus 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: Musculoskeletal History: Reports: Arthritis Neurological History: Reports: None Psychiatric History: Reports: Anxiety, Depression Endocrine/Metabolic History: Reports: None Hematologic History: Reports: None Immunologic History: Reports: None Oncologic (Cancer) History: Reports: None Dermatologic History: Reports: None - Infectious Disease History Infectious Disease History: Reports: None - Past Surgical History Head Surgeries/Procedures: Reports: None GI Surgical History: Reports: Appendectomy, Colonoscopy Female Surgical History: Reports: Hysterectomy, Salpingo-Oophorectomy Social & Family History - Family History Family Medical History: Noncontributory - Tobacco Use Smoking Status *Q: Former Smoker Used Tobacco, but Quit: Yes Month Tobacco Last Used: 2009 Second Hand Smoke Exposure: No - Caffeine Use Caffeine Use: Reports: Soda - Alcohol Use Days Per Week of Alcohol Use: 0 - Recreational Drug Use Recreational Drug Use: No H&P Review of Systems - Review of Systems: Review Of Systems: ROS reveals no pertinent complaints other than HPI. Exam - Exam Exam: See Below - Vital Signs Vital Signs: Last Vital Signs Temp 36.8 C 11/15/17 08:00 Pulse 81 11/15/17 08:00 Resp 16 11/15/17 08:00 BP 107/69 11/15/17 08:00 Pulse Ox 94 L 11/15/17 08:00 Weight: 69 kg - Exam General: Alert, Oriented, Cooperative HEENT: Conjunctiva Clear Neck: Supple Lungs: Clear to Auscultation, Normal Respiratory Effort Cardiovascular: Regular Rate, Regular Rhythm GI/Abdominal Exam: Tender Extremities: No Pedal Edema - Patient Data Result Diagrams: 11/15/17 12:02 11/15/17 12:02 *Q Meaningful Use (ADM) - VTE *Q VTE Criteria *Q: - Stroke *Q Stroke Criteria *Q: - AMI *Q AMI Criteria *Q: Problem List Initiated/Reviewed/Updated: Yes Orders Last 24hrs: Active Orders 24 hr Category Date Time Status NPO [Nothing Per Oral Diet] [DIET] Diet 11/15/17 Breakfast Active Morphine Med 11/15/17 06:10 Active 2 mg IVPUSH Q2H PRN Ondansetron [Zofran] Med 11/15/17 06:11 Active 4 mg IVPUSH Q4H PRN Sodium Chloride 0.9% [Normal Saline] 1,000 ml Med 11/15/17 06:15 Active IV ASDIRECTED Medication Orders Sodium Chloride (Normal Saline) 1,000 mls @ 150 mls/hr IV ASDIRECTED GO Last Admin: 11/15/17 05:27 Dose: 150 mls/hr Sodium Chloride (Normal Saline) 1,000 mls @ 125 mls/hr IV ASDIRECTED GO Morphine Sulfate (Morphine) 2 mg IVPUSH Q2H PRN PRN Reason: Pain Last Admin: 11/15/17 08:05 Dose: 2 mg Ondansetron HCl (Zofran) 4 mg IVPUSH Q4H PRN PRN Reason: Nausea/Vomiting Sodium Chloride (Saline Flush) 10 ml FLUSH ASDIRECTED PRN PRN Reason: Keep Vein Open Last Admin: 11/15/17 03:43 Dose: 10 ml Sodium Chloride (Saline Flush) 2.5 ml FLUSH ASDIRECTED PRN PRN Reason: Keep Vein Open Last Admin: 11/15/17 03:37 Dose: 2.5 ml Assessment/Plan Comment:: 57-year-old female admitted secondary to abdominal pain and inability to tolerate by mouth, CT imaging indicates possible small bowel post operative ileus versus partial small bowel obstruction. -Patient to be kept nothing by mouth, IV fluids, pain control. Patient will be assessed in the a.m. and once the bowel has appropriate amount of respiratory progress the diet as tolerated and assess patient's status. -I shall speak with Dr. Simeon Fall who performed the surgery 3 weeks ago tto let him know about her admission and if he has any possible intervention that he recommends.
--- NOTE | 2017-11-15 10:27 | CT ---
EXAM DATE: 11/15/17 PATIENT'S AGE: 57 Patient: OSMAR BOX Facility: [place], [place] Site . Site : [id number] Study: CT Abdomen/Pelvis WITH [id number] 4:48:28 AM Ordering Physician: Cam Kothari Final Report: INDICATION: General abd pain, nausea, vomiting Recent appendectomy TECHNIQUE: CT abdomen and pelvis acquired with IV contrast. COMPARISON: October 25, 2017 FINDINGS: Lower chest: Atelectasis. Liver: Stable hepatic hemangioma within the right hepatic lobe. Spleen: Unremarkable. Pancreas: Unremarkable. Gallbladder and bile ducts: Cholelithiasis. The pancreatic duct is dilated measuring up to 6 mm Kidneys: Unremarkable. Adrenal glands: Unremarkable. GI tract: Hiatal hernia. Scattered colonic diverticulosis noted to acute diverticulitis. Prominent fluid-filled loops of small bowel most pronounced within the upper abdomen. Stable duodenal diverticulum along the 2nd portion of duodenum. . Appendix is not visualized. Vascular structures: Negative. No sign of aneurysm. Lymph nodes: Unremarkable. Miscellaneous: Unremarkable. No free air or significant free fluid. Pelvic Organs: Unremarkable. Bones: Degenerative changes. IMPRESSION: 1. Prominent fluid-filled loops of small bowel most pronounced in the upper abdomen. Given history this likely represents postoperative ileus versus early small bowel obstruction. 2. Cholelithiasis. 3. Otherwise, stable examination as described above. Dictated by Oziel Thomas MD @ 11/15/2017 5:02:26 AM Dictated by: Oziel Thomas MD @ 11/15/2017 05:02:45 (Electronic Signature) Report Signed by Proxy. MARIA FARERI CHILDREN'S HOSPITALCristy
[2017-11-15 12:24] LABS: CHLORIDE,CL 110 mmol/L (98-107); SODIUM,NA 142 mmol/L (136-145)
[2017-11-15] MEDS: Sodium Chloride 0.9% 1,000 ML IV SCH ×2 (13:18→20:53)
[2017-11-15] MEDS: Enoxaparin 40 MG/0.4 ML Syringe SUBCUT SCH (14:20)
[2017-11-15] MEDS: HYDROmorphone 1 MG/ML Syringe IVPUSH PRN ×2 (18:19→21:12)
[2017-11-16] MEDS: HYDROmorphone 1 MG/ML Syringe IVPUSH PRN ×2 (03:33→08:34)
[2017-11-16] MEDS: Sodium Chloride 0.9% 1,000 ML IV SCH (05:27)
[2017-11-16 05:56] LABS: CHLORIDE,CL 110 mmol/L (98-107); SODIUM,NA 142 mmol/L (136-145)
[2017-11-16] MEDS ORDERED: Acetaminophen 325 MG Tab PO PRN (11:59)
--- NOTE | 2017-11-16 13:18 | PCM.SN ---
- Free Text/Narrative Note: pt seen, chart reviewed; resolving ileus; recommend stay with liquid diet X 72 hrs then advance as tolerated; fu w me 2 - 3 wks; thanks for the cx and care of this nice lady; [id number]
[2017-11-16] MEDS: Enoxaparin 40 MG/0.4 ML Syringe SUBCUT SCH (14:05)
[2017-11-16 15:59] VITALS: BP 90/51
--- NOTE | 2017-11-16 19:18 | PCM.DCSUM1 ---
Discharge Summary - Hospital Course HPI Initial Comments: Discharge Summary Date of admission: 11/15/2017 Date of discharge: 11/16/2017 Admitting diagnosis: #1. Abdominal pain, inability to tolerate by mouth secondary to small bowel obstruction partial versus post operative ileus #2. Significant past medical history of a recent appendectomy performed 3 weeks ago Discharge diagnoses: #1. Ileus now resolving, patient tolerating regular by mouth without any nausea/ vomiting or abdominal pain Consultations: Gen. surgery; Simeon Rainey MD Procedures: None Hospitalization course: Patient was admitted to the floor secondary to abdominal pain, nausea/vomiting, inability to tolerate by mouth intake. Patient was made nothing by mouth, given IV fluids, and given pain control with morphine and Dilaudid. Patient wasn't nothing by mouth for appropriate bowel rest up until a.m. of 11/16/2017. After assessing the patient during morning rounds it was determined that the patient's abdominal pain had resolved. We progressed the patient's diet from nothing by mouth to a liquid diet without any difficulty from the patient and no further abdominal pain, nausea/vomiting. Dr. Rainey was informed of her admission to the floor as he had operated on the patient [address] Fall came in and assessed the patient on 11/16/2017, he also felt that the ileus was resolving, and recommended that the patient could be discharged on a liquid diet for 72 hours and then advance as tolerated. And that he would like to see her in 2-3 weeks for a follow-up. After patient was determined not to have any further by mouth related issues, and had passed gas/ bowel movement vision was subsequently discharged. Disposition on discharge: Stable Condition on discharge: Home Discharge medications: Continuation of home medication Follow-up instructions: Follow-up with primary care physician, follow-up with general surgery - Discharge Data Discharge Date: 11/16/17 Discharge Disposition: Home, Self-Care 01 Condition: Good - Patient Instructions Diet: Full Liquid Diet Activity: Rest and Relax Today Driving: Do Not Drive Showering/Bathing: May Shower Notify Provider of: Fever, Increased Pain, Nausea and/or Vomiting Other/Special Instructions: Advance diet slowly starting with clear liquids. Take home medications as prescribed. Follow-up with scheduled surgery appointment and primary care appointment. Return to emergency department if new or worsening symptoms. - Discharge Plan Home Medications: Home Meds busPIRone [Buspar] 15 tab PO BID 01/09/15 [History] Pantoprazole Sodium 40 mg PO DAILY 09/19/17 [History] Patient Handouts: Ileus, Abdominal Pain, Adult, [id number] Referrals: Simeon Rainey MD [Physician] - 12/06/17 1:30 pm (Please come around 1315 to check in. ) Hanna Martinez NP [Primary Care Provider] - 12/05/17 1:30 pm - Discharge Summary/Plan Comment DC Time >30 min.: No - Patient Data Vitals - Most Recent: Last Vital Signs Temp 36.5 C 11/16/17 15:00 Pulse 80 11/16/17 15:00 Resp 17 11/16/17 15:00 BP 90/51 L 11/16/17 15:00 Pulse Ox 94 L 11/16/17 15:00 Weight - Most Recent: 69 kg I&O - Last 24 hours: Intake & Output 11/16/17 11/16/17 11/16/17 06:59 14:59 22:59 Intake Total 1216 1180 1000 Output Total 900 1100 500 Balance 316 80 500 Lab Results - Last 24 hrs: Laboratory Results - last 24 hr 11/16/17 11/16/17 Range/Units 05:06 05:06 WBC 7.83 (4.0-11.0) K/uL RBC 3.89 L (4.30-5.90) M/uL Hgb 13.3 (12.0-16.0) g/dL Hct 38.3 (36.0-46.0) % MCV 98.5 H (80.0-98.0) fL MCH 34.2 H (27.0-32.0) pg MCHC 34.7 (31.0-37.0) g/dL RDW Std Deviation 46.5 (28.0-62.0) fl RDW Coeff of Alexandra 13 (11.0-15.0) % Plt Count 208 (150-400) K/uL MPV 9.70 (7.40-12.00) fL Neut % (Auto) 67.1 (48.0-80.0) % Lymph % (Auto) 21.6 (16.0-40.0) % [place] % (Auto) 9.6 (0.0-15.0) % Eos % (Auto) 1.4 (0.0-7.0) % Baso % (Auto) 0.3 (0.0-1.5) % Neut # (Auto) 5.3 (1.4-5.7) K/uL Lymph # (Auto) 1.7 (0.6-2.4) K/uL [place] # (Auto) 0.8 (0.0-0.8) K/uL Eos # (Auto) 0.1 (0.0-0.7) K/uL Baso # (Auto) 0.0 (0.0-0.1) K/uL Nucleated RBC % 0.0 /100WBC Nucleated RBCs # 0 K/uL Sodium 142 (136-145) mmol/L Potassium 3.7 (3.5-5.1) mmol/L Chloride 110 H (98-107) mmol/L Carbon Dioxide 25.5 (21.0-32.0) mmol/L BUN 10 (7.0-18.0) mg/dL Creatinine 0.6 (0.6-1.0) mg/dL Est Cr Clr Drug Dosing 91.48 mL/min Estimated GFR (MDRD) > 60.0 ml/min Glucose 76 (74-106) mg/dL Calcium 7.6 L (8.5-10.1) mg/dL Total Bilirubin 0.6 (0.2-1.0) mg/dL AST 22 (15-37) IU/L ALT 25 (14-63) IU/L Alkaline Phosphatase 66 (46-116) U/L Total Protein 5.8 L (6.4-8.2) g/dL Albumin 2.8 L (3.4-5.0) g/dL Globulin 3.0 (2.0-3.5) g/dL Albumin/Globulin Ratio 0.9 L (1.3-2.8) Med Orders - Current: Current Medications Discontinued Medications Acetaminophen (Tylenol) 650 mg PO Q4H PRN PRN Reason: Headache Last Admin: 11/16/17 12:08 Dose: 650 mg Enoxaparin Sodium (Lovenox) 40 mg SUBCUT Q24H GO Last Admin: 11/16/17 14:05 Dose: 40 mg Hydromorphone HCl (Dilaudid) 1 mg IVPUSH Q2H PRN PRN Reason: Pain Last Admin: 11/16/17 08:34 Dose: 1 mg Sodium Chloride (Normal Saline) 1,000 mls @ 999 mls/hr IV STAT ONE Stop: 11/15/17 04:14 Last Admin: 11/15/17 03:37 Dose: 999 mls/hr Sodium Chloride (Normal Saline) 1,000 mls @ 150 mls/hr IV ASDIRECTED GO Last Admin: 11/15/17 05:27 Dose: 150 mls/hr Sodium Chloride (Normal Saline) 1,000 mls @ 125 mls/hr IV ASDIRECTED GO Last Admin: 11/16/17 05:27 Dose: 125 mls/hr Iopamidol (Isovue Multipack-370 (76%)) 200 ml IVPUSH ONETIME ONE Stop: 11/15/17 04:41 Last Admin: 11/15/17 04:44 Dose: 85 ml Morphine Sulfate (Morphine) 4 mg IVPUSH ONETIME ONE Stop: 11/15/17 03:15 Last Admin: 11/15/17 03:42 Dose: 4 mg Morphine Sulfate (Morphine) 2 mg IVPUSH Q2H PRN PRN Reason: Pain Last Admin: 11/15/17 14:25 Dose: 2 mg Ondansetron HCl (Zofran) 4 mg IVPUSH ONETIME ONE Stop: 11/15/17 03:15 Last Admin: 11/15/17 03:38 Dose: 4 mg Ondansetron HCl (Zofran) 4 mg IVPUSH Q4H PRN PRN Reason: Nausea/Vomiting Last Admin: 11/16/17 10:52 Dose: 4 mg Sodium Chloride (Saline Flush) 10 ml FLUSH ASDIRECTED PRN PRN Reason: Keep Vein Open Last Admin: 11/15/17 03:43 Dose: 10 ml Sodium Chloride (Saline Flush) 2.5 ml FLUSH ASDIRECTED PRN PRN Reason: Keep Vein Open Last Admin: 11/15/17 03:37 Dose: 2.5 ml *Q Meaningful Use (DIS) - VTE *Q VTE Criteria *Q: - Stroke *Q Stroke Criteria *Q: - AMI *Q AMI Criteria *Q:
--- NOTE | 2017-11-19 15:06 | CONS ---
DATE OF CONSULTATION: 11/16/2017 DATE OF : 1960 PRIMARY CARE PHYSICIAN: PHILLIP Campbell CONCERNING QUESTION: Abdominal pain. HISTORY OF PRESENT ILLNESS: The patient is a 57-year-old lady and known to my service from 3-1/2 weeks ago, who had a laparoscopic appendectomy for early appendicitis, and no signs or symptoms of perforation. Postop, the patient was doing fine and was discharged home, and yesterday, the patient returned to the emergency room for abdominal pain, and the patient remarked at that time it can be as bad as 8 or 9/10 pain scale and also two emeses. In the emergency room, on workup of CT scan, is shown to have a possible bowel obstruction. The patient was admitted to Medical Service and for further management. This morning, the patient is tolerating p.o. clear liquid diet, and the pain is gone. As a matter of fact, the patient is more concerned about other things. The patient complained about headache and complained about picking Zofran for nausea. PAST MEDICAL HISTORY: Significant for no diabetes, OH, CVA, or hypertension. SOCIAL HISTORY: Denied tobacco or alcohol abuse. ALLERGIES: Allergic to medications. Please refer to nursing note for details. PHYSICAL EXAMINATION: GENERAL: A very pleasant nice lady, smiled to the doctor, in no acute distress. HEENT: Normocephalic and atraumatic. Sclerae anicteric. LUNGS: Clear to auscultation. HEART: Regular rate and rhythm. ABDOMEN: Soft and nondistended. No pulsating tender midline abdominal structure and nontender in all four quadrants with bowel sounds. The patient has well-formed stool yesterday. VITAL SIGNS: This morning, 97, 98, 98, and afebrile. LABORATORY DATA: Laboratory values upon consultation, white count 7, H and H are 13 and 38, BUN of 10, and creatinine 0.6. IMPRESSION/PLAN: Abdominal pain, 3-1/2 weeks, status post laparoscopic appendectomy, and wound looks fine and resolving ileus. We will agree to continue on p.o. diet and send home and follow up with me on an as-needed basis. Thank you for the kind referral. BARBARA / SHARRI /[id number]
== END 2017-11-16 18:15 | disposition home or self-care (01) ==
LOC: MW.ED 02:55 → MW.MS 05:21
PROVIDERS: ADMIT Internal Medicine; ATTEND Internal Medicine
DX: K56.7 Ileus, unspecified (principal); K21.9 Gastro-esophageal reflux disease without esophagitis; M19.90 Unspecified osteoarthritis, unspecified site; F41.9 Anxiety disorder, unspecified; F32.9 Major depressive disorder, single episode, unspecified; Z90.710 Acquired absence of both cervix and uterus; Z79.899 Other long term (current) drug therapy; Z90.49 Acquired absence of other specified parts of digestive tract; Z90.722 Acquired absence of ovaries, bilateral; Z87.891 Personal history of nicotine dependence
CPT/HCPCS: 36415; 74177; 80048; 80053; 81001; 82150; 83690; 85025; 96361; 96372; 96374; 96375; 96376; 99285; A9270; G0378; J1170; J1650; J2270; J2405; J7040; Q9967; 99284

== ENCOUNTER 2024-04-20 10:23 | Emergency (ER) | payer OTHER ==
[2024-04-20 10:30] VITALS: BP 104/63; PULSE 78
[2024-04-20] MEDS: Amoxicillin/Clavulanate K 875-125 MG Tab PO ONE (10:49)
== END 2024-04-20 10:50 | disposition home or self-care (01) ==
LOC: MW.ED 10:23
DX: J01.10 Acute frontal sinusitis, unspecified (principal); Z90.49 Acquired absence of other specified parts of digestive tract; Z90.710 Acquired absence of both cervix and uterus; Z75.8 Other problems related to medical facilities and other health care
CPT/HCPCS: 99283; A9270

== ENCOUNTER 2024-09-21 12:37 | Emergency (ER) | payer OTHER ==
[2024-09-21 13:05] LABS: APPEARANCE,URINE CLEAR; BILIRUBIN,URINE NEGATIVE (NEGATIVE); COLOR,URINE YELLOW; GLUCOSE,URINE NEGATIVE (NEGATIVE); KETONES,URINE NEGATIVE (NEGATIVE); LEUKOCYTE ESTERASE,URINE TRACE (NEGATIVE); NITRITE,URINE NEGATIVE (NEGATIVE); OCCULT BLOOD,URINE NEGATIVE (NEGATIVE); PROTEIN,URINE NEGATIVE (NEGATIVE); UROBILINOGEN,URINE 0.2 EU/dL (<2.0)
[2024-09-21] MEDS ORDERED: Sodium Chloride 0.9% 2.5 ML Syringe FLUSH PRN (13:07)
[2024-09-21] MEDS ORDERED: Sodium Chloride 0.9% 10 ML Syringe FLUSH PRN (13:07)
[2024-09-21 13:14] LABS: BACTERIA,URINE FEW (NEGATIVE); EPITHELIAL CELLS,URINE FEW (NONE-FEW); RBC,URINE 0-1 (0-2/HPF)
[2024-09-21] MEDS: Ketorolac 30 MG/ML SDV IVPUSH ONE (13:27)
[2024-09-21] MEDS: Sodium Chloride 0.9% 1,000 ML IV ONE (13:27)
[2024-09-21 13:34] LABS: HEMATOCRIT 41.4 % (37.0-47.0); HEMOGLOBIN 14.7 g/dL (12.0-16.0); MEAN CORPUSCULAR HEMOGLOBIN 34.4 pg (28.0-32.0); MEAN CORPUSCULAR HGB CONC 35.5 g/dL (32.0-36.0); MEAN PLATELET VOLUME 9.4 fL (9.4-12.3); PLATELET COUNT,PLT 191 K/uL (150-400); RED BLOOD CELL COUNT 4.27 M/uL (4.10-5.30); WHITE BLOOD CELL COUNT,WBC 15.81 K/uL (3.9-11.3)
[2024-09-21 13:55] LABS: A/G RATIO 0.9 (0.9-1.6); ALBUMIN 3.5 g/dL (3.4-5.0); BILIRUBIN TOTAL 1.7 mg/dL (0.2-1.0); CALCIUM 8.5 mg/dL (8.5-10.1); CARBON DIOXIDE,CO2 24.9 mmol/L (21.0-32.0); CREATININE 0.6 mg/dL (0.6-1.0); EST CRCL DRUG DOSING (CG) 83.95 mL/min; POTASSIUM,K 4.2 mmol/L (3.5-5.1); PROTEIN TOTAL,TP 7.4 g/dL (6.4-8.2)
[2024-09-21 13:58] LABS: LYMPHOCYTES PERCENT MAN 12 % (24-44); MONOCYTES ABSOLUTE MAN 0.95 K/uL (0.00-0.80); MONOCYTES PERCENT MAN 6 % (0-8); SEG NEUTROPHILS ABSOLUTE MAN 12.96 K/uL (1.80-7.70); SEG NEUTROPHILS PERCENT MAN 82 % (41-71)
[2024-09-21] MEDS: Iopamidol 755 MG/ML 500 ML Multipack Bottle IVPUSH STA (14:30)
[2024-09-21 17:19] VITALS: BP 112/74; PULSE 77
[2024-09-21] MEDS: Cyclobenzaprine 10 MG Tab PO ONE (17:35)
[2024-09-21] MEDS: Lidocaine 4% 1 each Patch TOP STA (17:35)
== END 2024-09-21 17:51 | disposition home or self-care (01) ==
LOC: MW.ED 12:37
DX: K76.0 Fatty (change of) liver, not elsewhere classified (principal); M54.9 Dorsalgia, unspecified; Z90.710 Acquired absence of both cervix and uterus; Z88.8 Allergy status to other drugs, medicaments and biological substances; Z75.8 Other problems related to medical facilities and other health care
CPT/HCPCS: 36415; 74177; 76705; 80053; 81001; 83690; 83735; 85025; 87086; 87428; 96361; 96374; 99284; A9270; J1885; J7030; Q9967

== ENCOUNTER 2024-12-04 09:05 | Day surgery (SDC) | payer OTHER ==
[~2024-12-04 09:05] MED LIST changes: -Lactated Ringers 1,000 ML IV SCH; +Sodium Chloride 0.9% 20 ML SDV IV PRN
[2024-12-04] MEDS: Lactated Ringers 1,000 ML IV SCH (09:28)
[2024-12-04] MEDS ORDERED: propofoL 500 MG/50 ML 50 ML ONE (10:32)
[2024-12-04] MEDS ORDERED: Lidocaine 2% 5 ML SDV ONE (10:32)
[2024-12-04] MEDS ORDERED: Propofol 200 MG/20 ML SDV ONE (11:34)
[2024-12-04 12:27] VITALS: BP 109/73; PULSE 72
== END 2024-12-04 12:40 | disposition home or self-care (01) ==
LOC: MW.SDS 09:05
PROVIDERS: ATTEND Surgery
DX: K57.30 Diverticulosis of large intestine without perforation or abscess without bleeding (principal); K44.9 Diaphragmatic hernia without obstruction or gangrene; K21.9 Gastro-esophageal reflux disease without esophagitis; F41.8 Other specified anxiety disorders; K80.20 Calculus of gallbladder without cholecystitis without obstruction; Z87.891 Personal history of nicotine dependence; Z79.899 Other long term (current) drug therapy
CPT/HCPCS: 43239; 45380; J2003; J2704; J7120; 00813